=== PATIENT | male | born 1975 | race Caucasian/White ===

== ENCOUNTER 2019-01-15 14:28 | Emergency (ER) | payer BC ==
--- NOTE | 2019-01-15 15:33 | ED ---
HPI Chest Pain - HPI Summary HPI Summary: 43 year old F [facility] [place] by mother with a chief complaint of intermittent chest pain described as stabbing and pressure for 3 days. The patient rates the pain 4/10 in severity. Symptoms aggravated by food. Symptoms alleviated by nothing. Patient reports vomiting, non bloody, non black, and insomnia. He states he had shortness of breath which has resolved. He has not treated the pain with any medications. He denies rash, fever, neck pain, diarrhea, black stools, bloody stools, dysuria. Patient states he had right- sided flank pain several months ago from which he was diagnosed with kidney cancer. Pt underwent nephrectomy in November. Patient never saw an oncologist. He never had chemotherapy. He had his left kidney removed at [place] on 11/27/18. Patient states he was told he had an IA some time between June 2018 and November 2018 based on a pre-operative Prior to his kidney removal surgery, he had a "full cardiac workup" which was normal and included a stress test. Pt states there was no futher evidence of a heart attack and his EKG normalized. He states skin irritation on the front of chest and upper back since having his left kidney removed - states thinks was related to skin cleansing product used. . Patient had cholecystectomy and appendectomy in [place] two weeks ago. He saw his surgeon today for post-surgical follow-up who referred him to the ED to be evaluated for chest pain. Patient has an appointment with Dr. Barrera, oncology , on 01/17/19 per mother. Patient states he is looking for a new primary care provider. 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 Patients medication reviewed this visit. - History of Current Complaint Chief Complaint: EDChestPainROMI Time Seen by Provider: 01/15/19 15:19 Hx Obtained From: Patient, Family/Benzene Washer - mother Onset/Duration: Started Days Ago - 3, Still Present Timing: Intermittent Current Severity: Moderate Pain Intensity: 4 Pain Scale Used: 0-10 Numeric Character: Pressure/Squeezing, Sharp/Stabbing Aggravating Factor(s): Other: - Food Alleviating Factor(s): Nothing Associated Signs and Symptoms: Positive: Negative - rash, fever, neck pain, diarrhea, black stools, bloody stools, dysuria, Other: - vomiting and insomnia - Allergy/Home Medications Allergies/Adverse Reactions: Allergies Allergy/AdvReac Type Severity Reaction Status Date / Time honey Allergy Hives Verified 01/15/19 15:29 iodine Allergy Hives Verified 01/15/19 15:29 povidone-iodine Allergy Hives Verified 01/15/19 15:29 [From Betadine] soap [From Betadine] Allergy Hives Verified 01/15/19 15:29 Home Medications: Home Medications Atorvastatin* [Lipitor*] 20 mg PO DAILY 01/15/19 [History Confirmed 01/15/19] Lisinopril TAB* [Prinivil TAB*] 20 mg PO BID 01/15/19 [History Confirmed ] Naproxen [Naproxen 500 mg tab] 500 mg PO BID 01/15/19 [History Confirmed ] Sertraline* [Zoloft*] 50 mg PO DAILY 01/15/19 [History Confirmed 01/15/19] Varenicline (NF) [Chantix 1 MG TAB (NF)] 1 mg PO BID 01/15/19 [History Confirmed 01/15/19] Zolpidem TAB* [Ambien TAB*] 10 mg PO BEDTIME PRN 01/15/19 [History Confirmed 10/01] PMH/Surg Hx/FS Hx/Imm Hx Previously Healthy: No Endocrine/Hematology History: Reports: Hx Diabetes, Other Endocrine/ Hematological Disorders - hyperlipidemia Denies: Hx Anticoagulant Therapy Cardiovascular History: Reports: Hx Hypertension Denies: Hx Myocardial Infarction GI History: Denies: Hx Gastroesophageal Reflux Disease History: Reports: Other Problems/Disorders - constipation - Cancer History Cancer Type, Location and Year: left renal - Surgical History Surgery Procedure, Year, and Place: cholecystectomy, appy. left kidney removal due to tumor. ear tube plaement. 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 Negative: Diarrhea Negative: dysuria Musculoskeletal: Negative - neck pain Negative: Rash Positive: Other - insomnia All Other Systems Reviewed And Are Negative: Yes Physical Exam - Summary Physical Exam Summary: Vital Signs Reviewed: Yes A+Ox3, no distress Eyes: Conjunctiva Clear, NICK. EOM intact and full ENT: Hearing grossly normal TM x 2 clear, turbinates minimal inflammation mmoist, uvula midline, no exudate, + erythema Neck: Positive: Supple, + submandicular LA R>L Respiratory: Positive: No respiratory distress, No accessory muscle use + CTA throughout no w/r Cardiovascular: RRR nl s1, s2 no m/r CBT <2 sec, no bruits abd soft + BS nt/nd no guarding, no distension Musculoskeletal Exam: EASTMAN x 4 without difficulty Strength Intact, ROM Intact Neurological: Positive: Alert, + sensation throughout Psychological: Positive: Normal Response To credit compliance officer Skin: Positive: no rash, no ecchymosis, surgical scars c/d/i Triage Information Reviewed: Yes Vital Signs On Initial Exam: Initial Vitals Temp Pulse Resp BP Pulse Ox 97.1 F 108 22 162/96 99 01/15/19 14:33 01/15/19 14:33 01/15/19 14:33 01/15/19 14:33 01/15/19 14:33 Vital Signs Reviewed: Yes Diagnostics - Vital Signs Vital Signs Temp Pulse Resp BP Pulse Ox 01/15/19 14:33 97.1 F 108 22 162/96 99 - Laboratory Result Diagrams: 01/15/19 15:19 01/15/19 15:23 Lab Statement: Any lab studies that have been ordered have been reviewed, and results considered in the medical decision making process. - CT No standard instances CT Interpretation Completed By: Radiologist - Patient Name: TERRI GABRIEL Medical Record#: [id number] Ordering Physician: Beverly Gibbs MD Acct.#: [id number] : 1975 Age: 43 Sex: M Location: EMERGENCY DEPARTMENT Exam Date: 1608 ADM Status: REG ER Order Information: CTA CHEST Accession Number: [id number] CPT: 63844 Indication: Shortness of breath, back pain. Contrast: Administered 93.2 ml of VISAPAQUE 320 mg/ml CTA of the chest performed after IV contrast administration. Coronal and sagittal reconstructed images were obtained. The pulmonary arterial tree is well opacified. There are no filling defects present to suggest pulmonary embolus. The aorta demonstrates no evidence of aneurysmal dilatation or aortic dissection. The heart demonstrates no pericardial effusion. The trachea and major bronchi appear patent. No evidence of alveolar consolidation is noted. No focal nodules are identified in either lung field. Patient appears to be status post left nephrectomy. The remainder of the visualized abdominal organs are unremarkable. IMPRESSION: No definite pulmonary embolus is noted. No evidence of aortic dissection or aneurysmal dilatation of the aorta is noted. <Electronically signed by Sruthi Umana MD in [place]> 01/15/191724 Dictated By: Sruthi Umana MD Dictated Date/ Time: 01/15/191724 Transcribed Date/Time: 01/15/191722 Copy to: CC:Norris Barrera MD; Beverly Gibbs MD Imaging - [facility] [place] [facility] [address] [address] ph ([phone]) ph ) ph ([phone]) This report is only to be considered final once signed by the Provider(s) as displayed in the "<Electronically Signed by >" field (s). Absence of a signature indicates the report is in a draft status and still needs to be finalized. In the event this document was created by someone other than the signing Provider, the individual initiating the document will be listed in the "Entered by:" or "Dictated by:" cruz. 1 of 1 - EKG 1432 Cardiac Rate: Tachycardia - 112 BPM EKG Rhythm: Sinus Tachycardia Summary of EKG Findings: No acute STT wave changes - Additional Comments Diagnostic Additional Comments: Chest CTA shows, per radiologist: No definite pulmonary embolus is noted. No evidence of aortic dissection or aneurysmal dilatation of the aorta is noted. ED physician has reviewed this report. Re-Evaluation - Re-Evaluation First Eval Re-Evaluation Time: 17:51 Change: Unchanged - reviewed labs with patient, will repeat troponin now, patient can eat and will take his normal Percocet dose mild improvement with maalox low suspicion for cardiac - will check second trop, anticipate discharge f/u with PCP pt and mom in agreement with plan Second Eval Comment: second trop = 0. will discharge. recommend maalox, pepcid Chest Pain Course/Dx - Course Course Of Treatment: Pt presents with 3 days of chest discomfort, sob, belching , nausea and decreased appetite. pt with recent completed cardiac workup, nephrecotomy for renal mass and appy/so. Pt without h/o cardiac dx. vss. mild epigastric pain wiht deep palp. will check labs. CTA for PE. trop. eviewed EKG. maalox, reassess - Diagnoses Provider Diagnoses: Chest pain of uncertain etiology Discharge - Sign-Out/Discharge Documenting (check all that apply): Patient Departure - Discharge Patient Received Moderate/Deep Sedation with Procedure: No - Discharge Plan Condition: Stable Disposition: HOME Patient Education Materials: Chest Pain (DC) Referrals: Norris Barrera MD [Primary Care Provider] - [facility] [Outside] Additional Instructions: The doctor that evaluated you does not think your discomfort is related to your heart. The blood tests to look at your heart were normal today The test to look at your lungs and for blood clots was also normal It is recommended you eat small, frequent meals STart taking the gabapentin again as prescribed by your primary doctor. Take your other medications as prescribed. Okay to take pepcid or Maalox for burning stomach discomfort. Avoid spicy food, acidic food, tomato based food Keep your specialty appointment as scheduled on Sunday Contact your doctor or return with questions or concerns - Billing Disposition and Condition Condition: STABLE Disposition: Home - Attestation Statements Document Initiated by Sal: Yes Documenting Scribe: Myrtle Carey Provider For Whom Sal is Documenting (Include Credential): Beverly Gibbs MD Scribe Attestation: Myrtle Vicente, scribed for Beverly Gibbs MD on 01/19/19 at 1312. Scribe Documentation Reviewed: Yes Provider Attestation: The documentation as recorded by the Myrtle conde accurately reflects the service I personally performed and the decisions made by me, Beverly Gibbs MD Status of Scribe Document: Viewed
[2019-01-15 15:36] LABS: ABS Basophils 0.1 10^3/ul (0-0.2); ABS Eosinophils 0.1 10^3/ul (0-0.6); ABS Lymphocytes 1.9 10^3/ul (1.0-4.8); ABS Monocytes 0.6 10^3/ul (0-0.8); ABS Neutrophils 7.8 10^3/ul (1.5-7.7); Eosinophil % 0.9 %; Hematocrit 42 % (42-52); Hemoglobin 14.6 g/dL (14.0-18.0); Lymphocyte % 18.6 %; Mean Corpuscular HGB Conc 35 g/dL (31-36); Mean Corpuscular Hemoglobin 29 pg (27-31); Mean Corpuscular Volume 82 fL (80-94); Platelet Count 257 10^3/uL (150-450); Red Blood Count 5.04 10^6 /uL (4.18-5.48); Red Cell Distribution Width 14 % (10-15); White Blood Count 10.4 10^3/uL (3.5-10.8)
[2019-01-15 15:58] LABS: Albumin 4.4 g/dL (3.2-5.2); Albumin/Globulin Ratio 1.6 (1-3); Calcium 9.9 mg/dL (8.6-10.3); EGFR African American 91.3 (>60); EGFR Non-African American 75.4 (>60); Globulin 2.7 g/dL (2-4); INR 1.05 (0.82-1.09); Potassium 3.8 mmol/L (3.5-5.0); Total Bilirubin 0.5 mg/dL (0.2-1.0); Total Protein 7.1 g/dL (6.4-8.9)
[2019-01-15] MEDS ORDERED: Famotidine IV* 10 MG/ML 2 ML (20 mg) IV SLOW PU ONE (16:09)
[2019-01-15] MEDS ORDERED: NS 0.9% 1000 ML** 1,000 ML IV ONE (16:09)
[2019-01-15] MEDS ORDERED: Lidocaine 2% VISCOUS* 15 ML UDC PO ONE (16:10)
[2019-01-15] MEDS ORDERED: Al Hydrox/Mg Hydrox/Simet LIQ* 30 ML UDC PO ONE (16:10)
[2019-01-15] MEDS ORDERED: Iodixanol* (CONTRAST) 320 MG/ML 100 ML SDV IV ONE (16:56)
[2019-01-15] MEDS ORDERED: oxyCODONE/Acetamin 5/325 MG* TAB PO ONE (17:58)
[2019-01-15 18:51] VITALS: BP 146/104
== END 2019-01-15 18:50 | disposition home or self-care (01) ==
LOC: ED 14:28
DX: R07.9 Chest pain, unspecified (principal); Z87.891 Personal history of nicotine dependence; E11.9 Type 2 diabetes mellitus without complications; G47.00 Insomnia, unspecified; R11.0 Nausea
CPT/HCPCS: 36415; 71275; 80053; 83690; 83735; 84484; 85025; 85610; 93005; 96361; 96374; 99282; A9270-GY; Q9967

== ENCOUNTER 2019-04-01 11:46 | Emergency (ER) | payer BC ==
--- NOTE | 2019-04-01 13:21 | ED ---
Abdominal Pain/Male - HPI Summary HPI Summary: Pt is a 43 y/o M presenting to the ED for suprapubic abdominal pain increasing in severity over many months after a cholecystectomy and appendectomy. Dr. Barrera saw him today for a follow-up on an abdominal PET scan and US to discuss findings on a tumor found during the appendectomy, but after taking his vitals Dr. Barrera sent him here. The abdominal pain is associated with SOB, nausea, vomiting, and chills. Denies fever and diarrhea. Pt has taken Zofran for nausea with relief. Pt admits a PMHx of HTN, DM, and kidney cancer. Pt is allergic to honey, iodine , and povidone, with no reaction to contrast. He was previously prescribed Percocet, but has since stopped taking it. Denies smoking, alcohol or drug use. 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 - History of Current Complaint Chief Complaint: EDAbdPain Stated Complaint: ABD PAIN PER PT Time Seen by Provider: 04/01/19 13:07 Hx Obtained From: Patient Onset/Duration: Gradual Onset, Lasting Weeks, Still Present Timing: Constant, Lasting Weeks Severity Initially: Moderate Severity Currently: Severe Pain Intensity: 10 Pain Scale Used: 0-10 Numeric Location: Suprapubic Radiates: No Aggravating Factor(s): Deep Breaths Alleviating Factor(s): Nothing Associated Signs And Symptoms: Positive: Nausea, Vomiting, Other - Positive SOB and chills.. Negative: Fever, Diarrhea - Allergies/Home Medications Allergies/Adverse Reactions: Allergies Allergy/AdvReac Type Severity Reaction Status Date / Time honey Allergy Hives Verified 04/01/19 13:12 povidone-iodine Allergy Hives Verified 04/01/19 13:12 [From Betadine] soap [From Betadine] Allergy Hives Verified 04/01/19 13:12 Home Medications: Home Medications Metformin HCl 1,000 mg PO BID 04/01/19 [History Confirmed 04/01/19] Ondansetron TAB* [Zofran 4 MG Tab*] 4 mg PO SEE INSTRUCTIONS PRN 04/01/19 [ History Confirmed 04/01/19] glipiZIDE [Glipizide] 10 mg PO DAILY 04/01/19 [History Confirmed 04/01/19] PMH/Surg Hx/FS Hx/Imm Hx Previously Healthy: Yes Endocrine/Hematology History: Reports: Hx Diabetes, Other Endocrine/ Hematological Disorders - hyperlipidemia Cardiovascular History: Reports: Hx Hypertension Denies: Hx Myocardial Infarction GI History: Denies: Hx Gastroesophageal Reflux Disease History: Reports: Other Problems/Disorders - constipation - Cancer History Cancer Type, Location and Year: kidney CA - Surgical History Surgical History: Yes Surgery Procedure, Year, and Place: cholecystectomy, appy. left kidney removal due to tumor. ear tube plaement. left foot surgery Infectious Disease History: Unable to Obtain/Confirm Infectious Disease History: Denies: Traveled Outside the [place] in Last 30 Days - Family History Known Family History: Negative: Diabetes Family History: NEG: Fhx - Social History Alcohol Use: None Hx Substance Use: No Substance Use Type: Reports: None Hx Tobacco Use: Yes Smoking Status (MU): Light Every Day Tobacco Smoker Amount Used/How Often: quit 11/24/18 Review of Systems Positive: Chills. Negative: Fever Positive: Shortness Of Breath Positive: Abdominal Pain, Vomiting, Nausea. Negative: Diarrhea All Other Systems Reviewed And Are Negative: Yes Physical Exam - Summary Physical Exam Summary: Constitutional: Well-developed, Well-nourished, Alert. (-) Distressed Skin: Warm, Dry HENT: Normocephalic; Atraumatic Eyes: Conjunctiva normal Neck: Musculoskeletal ROM normal neck. (-) JVD, (-) Stridor, (-) Tracheal deviation Cardio: Rhythm regular, rate normal, Heart sounds normal; Intact distal pulses; The pedal pulses are 2+ and symmetric. Radial pulses are 2+ and symmetric. (-) Murmur Pulmonary/Chest wall: Effort normal. (-) Respiratory distress, (-) Wheezes, (-) Rales Abd: Soft, (-) tenderness, (-) Distension, (-) Guarding, (-) Rebound. Multiple abdominal surgical scars, suprapubic tenderness. Musculoskeletal: (-) Edema Lymph: (-) Cervical adenopathy Neuro: Alert, Oriented x3 Psych: Mood and affect Normal Triage Information Reviewed: Yes Vital Signs On Initial Exam: Initial Vitals Temp Pulse Resp BP Pulse Ox 97.8 F 84 18 162/106 98 04/01/19 11:52 04/01/19 11:52 04/01/19 11:52 04/01/19 11:52 04/01/19 11:52 Vital Signs Reviewed: Yes Diagnostics - Vital Signs Vital Signs Temp Pulse Resp BP Pulse Ox 04/01/19 13:04 80 179/106 99 04/01/19 11:52 97.8 F 84 18 162/106 98 - Laboratory Result Diagrams: 04/01/19 13:29 04/01/19 13:29 Lab Statement: Any lab studies that have been ordered have been reviewed, and results considered in the medical decision making process. - CT Abdomen/Pelvis CT CT Interpretation Completed By: Radiologist Summary of CT Findings: Abdomen/Pelvis CT IMPRESSION: Patient is status post cholecystectomy and right appendectomy. No abnormal masses or fluid collections are noted. Reviewed by ED physician. Abdominal Pain Male Course/Dx - Course Course Of Treatment: Patient is here with chronic abdominal pain. Patient sent in by Dr. Barrera for further evaluation. Patient had blood work performed which was grossly unremarkable had negative CT scan for any abnormality. Dr. Barrera was called and he does not think patient is an emergent condition for admission. Patient was discharged with follow-up with Dr. Barrera. - Diagnoses Provider Diagnoses: Abdominal pain Discharge ED - Sign-Out/Discharge Documenting (check all that apply): Patient Departure Patient Received Moderate/Deep Sedation with Procedure: No - Discharge Plan Condition: Stable Disposition: HOME Patient Education Materials: Abdominal Pain (ED) Referrals: Norris Barrera MD [Primary Care Provider] - Additional Instructions: Follow-up with Dr. Barrera in 1-3 days. Return to to Emergency Department for any new or worsening symptoms. - Billing Disposition and Condition Condition: STABLE Disposition: Home - Attestation Statements Document Initiated by Scribe: Yes Documenting Scribe: Aislinn Hawkins Provider For Whom Sal is Documenting (Include Credential): Live Shah MD. Scribe Attestation: Raquel Vicente Kathryn O'Connor, scribed for Live Shah MD. on 04/01/19 at 1847. Scribe Documentation Reviewed: Yes Provider Attestation: The documentation as recorded by the scribe, Aislinn Hawkins accurately reflects the service I personally performed and the decisions made by me, Live Shah MD. Status of Scribe Document: Viewed Consult Consult: 17:24: I spoke with Dr. Barrera at 17:24 who said pt has no desmoid tumor, all removed, and Dr. Barrera will follow-up with pt in the next couple days.
[2019-04-01 13:39] LABS: ABS Eosinophils 0.1 10^3/ul (0-0.6); ABS Lymphocytes 1.7 10^3/ul (1.0-4.8); ABS Monocytes 0.7 10^3/ul (0-0.8); ABS Neutrophils 4.8 10^3/ul (1.5-7.7); Hematocrit 44 % (42-52); Hemoglobin 15.1 g/dL (14.0-18.0); Lymphocyte % 23.4 %; Mean Corpuscular HGB Conc 35 g/dL (31-36); Mean Corpuscular Hemoglobin 30 pg (27-31); Mean Corpuscular Volume 86 fL (80-94); Mean Platelet Volume 6.8 fL (7.4-10.4); Nucleated Red Blood Cells % 0.1; Platelet Count 221 10^3/uL (150-450); Red Blood Count 5.08 10^6 /uL (4.18-5.48); Red Cell Distribution Width 13 % (10-15); White Blood Count 7.3 10^3/uL (3.5-10.8)
[2019-04-01 13:55] LABS: Albumin/Globulin Ratio 1.9 (1-3); Calcium 9.2 mg/dL (8.6-10.3); EGFR African American 107.3 (>60); EGFR Non-African American 88.7 (>60); Globulin 2.1 g/dL (2-4); Potassium 3.9 mmol/L (3.5-5.0); Total Bilirubin 0.4 mg/dL (0.2-1.0); Total Protein 6.1 g/dL (6.4-8.9)
[2019-04-01] MEDS ORDERED: Ondansetron INJ* 2 MG/ML VIAL IV ONE (14:12)
[2019-04-01] MEDS ORDERED: Morphine 4 MG/ML VIAL (1 ml) 4 MG/ML VIAL IV ONE (14:12)
[2019-04-01] MEDS ORDERED: Iodixanol* (CONTRAST) 320 MG/ML 100 ML SDV IV ONE (15:10)
[2019-04-01 15:58] LABS: Urine Appearance Clear; Urine Bilirubin Negative (Negative); Urine Blood Negative (Negative); Urine Color Yellow; Urine Glucose Negative (Negative); Urine Ketones Negative (Negative); Urine Nitrite Negative (Negative); Urine Protein Negative (Negative); Urine Specific Gravity 1.008 (1.010-1.030); Urine Urobilinogen Negative (Negative)
[2019-04-01 17:52] VITALS: BP 174/109
== END 2019-04-01 17:50 | disposition home or self-care (01) ==
LOC: ED 11:46
DX: R10.30 Lower abdominal pain, unspecified (principal); R06.02 Shortness of breath; R11.2 Nausea with vomiting, unspecified; R68.83 Chills (without fever); E11.9 Type 2 diabetes mellitus without complications; Z79.84 Long term (current) use of oral hypoglycemic drugs; I10 Essential (primary) hypertension; Z90.5 Acquired absence of kidney; Z90.49 Acquired absence of other specified parts of digestive tract; Z90.89 Acquired absence of other organs; Z88.3 Allergy status to other anti-infective agents; Z91.018 Allergy to other foods; Z87.891 Personal history of nicotine dependence
CPT/HCPCS: 36415; 74177; 80053; 81003; 83605; 83690; 85025; 96374; 96375; 99283; J2270; J2405; Q9967